=== PATIENT | female | born 1975 | race Caucasian/White ===

== ENCOUNTER 2022-12-07 17:07 | Emergency (ER) | payer OTHER ==
[~2022-12-07] VITALS: Ht 149.9 cm; Wt 77.1 kg
[2022-12-07 17:40] LABS: BASOPHILS ABSOLUTE AUTO 0.12 K/mm3 (0.00-0.23); BASOPHILS PERCENT AUTO 1 % (0-2); EOSINOPHILS ABSOLUTE AUTO 0.18 K/mm3 (0.00-0.68); EOSINOPHILS PERCENT AUTO 2 % (0-6); Hematocrit 32.1 % (33.0-51.0); Hemoglobin 9.4 g/dL (11.5-16.0); IMMATURE GRAN ABSOLUTE AUTO 0.05 K/mm3 (0.00-0.10); IMMATURE GRAN PERCENT AUTO 0 % (0-1); LYMPHOCYTES ABSOLUTE AUTO 1.48 K/mm3 (0.84-5.20); LYMPHOCYTES PERCENT AUTO 13 % (21-46); MONOCYTES PERCENT AUTO 8 % (4-13); Mean Corpuscular HGB 22.4 pg (26.0-34.0); Mean Corpuscular HGB Conc 29.3 g/dL (31.5-36.5); Mean Corpuscular Volume 77 fL (80-100); Mean Platelet Volume 10.5 fL (9.1-12.4); NEUTROPHILS ABSOLUTE AUTO 9.09 K/mm3 (1.96-9.15); NEUTROPHILS PERCENT AUTO 77 % (41-73); Platelet Count 379 K/mm3 (150-400); RDW Coefficient Variation 17.6 % (11.7-14.2); RDW Standard Deviation 48.5 fL (35.1-46.3); Red Blood Cell Count 4.19 M/mm3 (3.80-5.20); White Blood Cell Count 11.82 K/mm3 (4.00-11.30)
[2022-12-07 18:17] LABS: Albumin, Blood 3.5 g/dL (3.4-5.0); Albumin/Globulin Ratio 0.9 (0.8-1.8); Bilirubin, Total 0.2 mg/dL (0.1-1.0); Bun/Creatinine Ratio 17.8 (12.0-20.0); Calcium, Blood 8.4 mg/dL (8.5-10.1); Creatinine, Blood 0.68 mg/dL (0.40-1.00); Potassium, Blood 3.8 mmol/L (3.5-5.5); Total Protein, Blood 7.5 g/dL (6.4-8.2)
[2022-12-07 18:22] VITALS: BP 123/88
== END 2022-12-07 19:18 | disposition home or self-care (01) ==
LOC: ER 17:07
PROVIDERS: Physician Assistant
DX: N93.9 Abnormal uterine and vaginal bleeding, unspecified (principal); Z88.8 Allergy status to other drugs, medicaments and biological substances
CPT/HCPCS: 80053; 83690; 84703; 85025; 96374; 99284-25; A9270; J1885